=== PATIENT | male | born 1940 | race Caucasian/White ===

== ENCOUNTER 2019-03-15 06:12 | Emergency (ER) | payer OTHER ==
[~2019-03-15] VITALS: Ht 177.8 cm; Wt 74.8 kg
[2019-03-15 06:21] VITALS: BP 130/62; Ht 177.8 cm; Wt 74.8 kg
== END 2019-03-15 07:33 | disposition home or self-care (01) ==
LOC: ED 06:12
DX: S61.012A Laceration without foreign body of left thumb without damage to nail, initial encounter (principal); E11.9 Type 2 diabetes mellitus without complications; W45.8XXA Other foreign body or object entering through skin, initial encounter; Y93.89 Activity, other specified; Y92.89 Other specified places as the place of occurrence of the external cause; Y99.8 Other external cause status
CPT/HCPCS: 90715

== ENCOUNTER 2019-03-16 16:29 | Emergency (ER) | payer OTHER ==
[~2019-03-16] VITALS: Ht 177.8 cm; Wt 74.4 kg
[2019-03-16 16:39] VITALS: Ht 177.8 cm; Wt 74.4 kg
[2019-03-16 17:21] VITALS: BP 143/60
== END 2019-03-16 17:21 | disposition home or self-care (01) ==
LOC: ED 16:29
DX: Z48.01 Encounter for change or removal of surgical wound dressing (principal); E11.9 Type 2 diabetes mellitus without complications

== ENCOUNTER 2019-03-22 18:11 | Emergency (ER) | payer OTHER ==
[~2019-03-22] VITALS: Ht 177.8 cm; Wt 74.8 kg
[2019-03-22 18:19] VITALS: Ht 177.8 cm; Wt 74.8 kg
[2019-03-22 19:36] VITALS: BP 123/53
== END 2019-03-22 19:37 | disposition home or self-care (01) ==
LOC: ED 18:11
DX: S61.012D Laceration without foreign body of left thumb without damage to nail, subsequent encounter (principal); E11.9 Type 2 diabetes mellitus without complications; X58.XXXD Exposure to other specified factors, subsequent encounter